=== PATIENT | male | born 1995 | race African-American/Black ===

== ENCOUNTER 2020-11-10 17:55 | Emergency (ER) | payer BC ==
--- NOTE | 2020-11-10 18:28 | RAD ---
Exam:3 views right HISTORY: Pain. Injury. COMPARISON: None FINDINGS: Glenohumeral joint space is preserved. No fracture or dislocation. Visualized right ribs an d parenchyma are unremarkable. IMPRESSION: No fracture or dislocation.
== END 2020-11-10 21:03 | disposition home or self-care (01) ==
LOC: ERS 17:55
DX: M25.511 Pain in right shoulder (principal); J45.909 Unspecified asthma, uncomplicated; X50.0XXA Overexertion from strenuous movement or load, initial encounter; Y99.0 Civilian activity done for income or pay

== ENCOUNTER 2022-02-19 07:00 | Emergency (ER) | payer SELFPAY ==
[2022-02-19] MEDS ORDERED: Ketorolac Tromethamine 30 MG/ML VIAL ONE (07:15)
== END 2022-02-19 08:29 | disposition home or self-care (01) ==
LOC: ERS 07:00
DX: S53.401A Unspecified sprain of right elbow, initial encounter (principal); X58.XXXA Exposure to other specified factors, initial encounter
CPT/HCPCS: 96372; J1885

== ENCOUNTER 2023-01-14 08:08 | Emergency (ER) | payer OTHER, SELFPAY ==
[2023-01-14] MEDS ORDERED: diphenhydrAMINE 25 MG CAP ONE (09:09)
[2023-01-14] MEDS ORDERED: predniSONE 20 MG TAB ONE (09:09)
[2023-01-14] MEDS ORDERED: Famotidine 20 MG TAB ONE (09:09)
== END 2023-01-14 10:20 | disposition home or self-care (01) ==
LOC: ERS 08:08
DX: T78.40XA Allergy, unspecified, initial encounter (principal); L29.9 Pruritus, unspecified
CPT/HCPCS: 99283; J7512

== ENCOUNTER 2023-11-02 22:01 | Emergency (ER) | payer BC, SELFPAY ==
[2023-11-02] MEDS ORDERED: Acetaminophen 500 MG TAB ONE (22:19)
[2023-11-02] MEDS ORDERED: Ibuprofen 800 MG TAB ONE (23:56)
== END 2023-11-03 | disposition home or self-care (01) ==
LOC: ERS 22:01
DX: U07.1 COVID-19 (principal)
CPT/HCPCS: 71045; 93005